=== PATIENT | male | born 1955 | race African-American/Black ===

== ENCOUNTER 2018-08-22 21:58 | Emergency (ER) | payer OTHER ==
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
[2018-08-23 01:21] VITALS: BP 140/85
== END 2018-08-23 01:22 | disposition home or self-care (01) ==
LOC: ER 21:58
DX: M79.672 Pain in left foot (principal); R60.0 Localized edema; I10 Essential (primary) hypertension; M21.70 Unequal limb length (acquired), unspecified site; Z98.890 Other specified postprocedural states; Z88.1 Allergy status to other antibiotic agents
CPT/HCPCS: 99283